=== PATIENT | female | born 2000 | race Caucasian/White ===

== ENCOUNTER 2024-04-18 18:40 | Emergency (ER) | payer OTHER, SELFPAY ==
[2024-04-18 18:41] VITALS: BP 137/98
[2024-04-18 19:04] LABS: % Basophils 0.4 % (0-2); % Eosinophils 0.5 % (0-6); % Immature Granulocytes 0.3 % (0-0.5); % Lymphocytes 19.2 % (20.5-51.1); % Monocytes 7.7 % (1.7-9.3); % Neutrophils 71.9 % (42.2-75.2); Absolute Basophils 0.1 10^3/uL (0-0.2); Absolute Eosinophils 0.1 10^3/uL (0-0.7); Absolute Lymphocytes 2.2 10^3/uL (1.2-3.4); Absolute Monocytes 0.9 10^3/uL (0.1-0.6); Absolute Neutrophils 8.4 10^3/uL (1.4-6.5); Hematocrit 39.9 % (37.0-47.0); Hemoglobin 14.2 g/dL (12.0-16.0); Mean Corp Hgb Conc. 35.6 g/dL (33.0-37.0); Mean Corpuscular Hgb 33.1 pg (27.0-31.0); Mean Platelet Volume 9.6 fL (7.4-10.4); Nucleated Red Blood Cells % 0 %; Platelet Count 284 10^3/uL (130-400); Red Blood Cell Count 4.29 10^6/uL (4.20-5.40); Red Cell Dist. Width 12.5 % (11.5-14.5); White Blood Cell Count 11.7 10^3/uL (4.8-10.8)
[2024-04-18 19:25] LABS: ALT (SGPT) 24 U/L (0-35); AST (SGOT) 20 U/L (14-36); Albumin 4.9 g/dl (3.5-5.0); Alkaline Phosphatase 66 U/L (38-126); Blood Urea Nitrogen 13 mg/dl (7-17); Carbon Dioxide 22 mmol/L (22-30); Chloride 103 mmol/L (98-107); Glucose 85 mg/dl (70-99); Potassium 4.5 mmol/L (3.5-5.1); Sodium 139 mmol/L (135-145); Total Bilirubin 0.3 mg/dl (0.2-1.3); Total Protein 7.7 g/dl (6.3-8.2); eGFR > 60.00
[2024-04-18 19:29] LABS: Troponin I < 0.012 ng/ml
[2024-04-18 20:41] VITALS: BP 104/76
--- NOTE | 2024-04-18 20:56 | ED.GENMED ---
History of Present Illness
General
Chief Complaint: Chest Pain
Source: patient
Time Seen by Provider: 04/18/24 20:41
History of Present Illness
History of Present Illness:
23-year-old female presents to the emergency room complaining of chest pain. Patient states developed chest pain on Wednesday. She describes as a sharp pain. She felt dizzy and short of breath associated with it episode lasted for couple hours. She
felt better afterwards but the chest pain never went completely away. Patient had another episode like this earlier today. Her mom told her it was likely anxiety. However she went to an urgent care to get checked out and she was sent here for
further evaluation. Patient currently complains of some mild anterior chest discomfort but no associated symptoms. She denies recreational drug use. She does vape tobacco. No previous surgery. She denies any shortness breath at this time.
Phy Exam
Physical Exam
Physical Exam:
General: Awake, Alert, Oriented X3. No acute distress.
Vitals: unremarkable
Head: Atraumatic
Eyes: Pupils equal, EOMI
Throat: Airway intact, no exudates
Neck: Trachea midline
Lungs: Clear and equal b/l
Heart: Regular rate, no murmurs
Abd: Soft, Nontender, No pulsatile mass
Neuro: Nonfocal
Skin: Warm, dry, no rash
Extremities: pulses equal b/l, no edema
Scores
Heart Score for Chest Pain Patients
STEMI patient?: Not applicable
Course
Orders/Labs/Results
Orders:
Orders
04/18/24 18:41
Electrocardiogram (*1) Urgent
Reason for Study: Chest Pain
EKG- Treatment ONCE
04/18/24 18:53
Complete Blood Count/With Diff Urgent
Comprehensive Metabolic Panel Urgent
HCG, Serum Qualitative Screen Urgent
Troponin I Urgent
04/18/24 20:55
Add On- LAB Urgent
Tests Added?: qual hcg
04/18/24 20:56
CR Chest - 2 Views Urgent
Comment:
Reason For Exam: chest pain
Abnormal Lab Results
04/18/24
18:53
WBC 11.7 H 10^3/uL
(4.8-10.8)
MCH 33.1 H pg
(27.0-31.0)
Absolute Neuts (auto) 8.4 H 10^3/uL
(1.4-6.5)
Absolute Monos (auto) 0.9 H 10^3/uL
(0.1-0.6)
Lymphocytes % 19.2 L %
(20.5-51.1)
04/18/24 18:53
04/18/24 18:53
Vital Signs
Initial and Last Documented VS:
Initial Vital Signs
Temp Pulse Resp BP Pulse Ox
98.5 F 97 18 137/98 98
04/18/24 18:41 04/18/24 18:41 04/18/24 18:41 04/18/24 18:41 04/18/24 18:41
Last Documented Vital Signs
Temp Pulse Resp BP Pulse Ox
98.5 F 76 16 113/83 97
04/18/24 18:41 04/18/24 21:30 04/18/24 21:30 04/18/24 22:09 04/18/24 22:09
MDM/Problems Addressed
Differential Diagnosis Includes:
Chest wall pain, pneumothorax, SVT, musculoskeletal pain
MDM/Problems Addressed:
EKG shows no acute ischemic changes. Labs are unremarkable. Chest x-ray is normal. Patient stable for discharge home and outpatient follow-up
*Radiology
Radiology exam reviewed: preliminary read by ED provider (NAD I reviewed)
*Pulse Oximetry
Patient hypoxic: no
*EKG
Interpreted by ED Provider?: Yes
Heart Rate: 83
Rate: normal
Rhythm: sinus
[place]: normal axis
Interval: normal interval
QRS Pattern: normal QRS
Ischemia: no ischemia
*Sanitation Manager Interpretation
Rate: normal
Interpretation: normal
Rhythm: sinus
*Critical Care Note
Total Time (30-74mins, 75-104mins- exclusive of procedures): Not Applicable
ED Attending Note
-
Portions of this chart may have been created with voice recognition software.� Occasional wrong word or��sound alike� substitutions may have occurred due to the inherent limitations of voice recognition software.
Discharge Plan
Departure
Patient Disposition: Home (Routine Discharge)
Date of Disposition: 04/18/24
Time of Disposition: 21:52
Patient with high blood pressure during this ER visit?: No
Condition: Good
Discharge Problem:
Chest pain
Instructions: Chest Pain PCP Follow Up
Referrals:
UNKNOWN - PT DOES,NOT KNOW [Family Provider] -
Interventions
Interventions:
*Risk Screen - Suicide Last Done: 04/18/24 18:41
*General Assessment Last Done: 04/18/24 18:41
*Neglect/Abuse Screening Last Done: 04/18/24 18:41
ED- Fall Risk Assessment Last Done: 04/18/24 22:12
*ED COVID-19 Vaccine History Last Done: 04/18/24 18:41
*Nursing Disposition Last Done: 04/18/24 22:12
ED- Cardiac Assessment Last Done: 04/18/24 20:43
Discharge Date and Time
Discharge Date/Time: 04/18/24 22:12
Print Language: ARMENIAN
[2024-04-18 21:00] VITALS: BP 107/89
[2024-04-18 21:31] LABS: HCG, Serum Qualitative Screen Negative
[2024-04-18 22:09] VITALS: BP 113/83
== END 2024-04-18 22:12 | disposition home or self-care (01) ==
LOC: EMR 18:40
PROVIDERS: Emergency Medicine; EMERGENCY PHYSICIAN Emergency Medicine
DX: R07.89 Other chest pain (principal)
CPT/HCPCS: 99285; 71046; 80053; 84484; 84703; 85025; 93005